=== PATIENT | male | born 1950 | race Caucasian/White ===

== ENCOUNTER → 2024-07-17 11:32 | Outpatient (REF) | payer MEDICARE, OTHER, SELFPAY | LOC: MRI 3T 11:32 | PROVIDERS: ATTENDING PHYSICIAN Nurse Practitioner; FAMILY PHYSICIAN Family Medicine | DX: R97.20 Elevated prostate specific antigen [PSA] (principal) | CPT/HCPCS: 72197; A9575 ==

== ENCOUNTER 2024-09-29 12:15 | Emergency (ER) | payer MEDICARE, OTHER, SELFPAY ==
[2024-09-29 12:19] VITALS: BP 152/89
[2024-09-29 12:46] LABS: Hematocrit 41.4 % (39.0-52.0); Hemoglobin 14.2 g/dL (13.0-18.0); Mean Corp Hgb Conc. 34.3 g/dL (33.0-37.0); Mean Corpuscular Volume 89.6 fL (80.0-94.0); Nucleated Red Blood Cells % 0 % (-); Platelet Count 200 10^3/uL (130-400); Red Cell Dist. Width 12.2 % (11.5-14.5)
[2024-09-29 13:01] LABS: ALT (SGPT) 66 U/L (0-50); AST (SGOT) 39 U/L (17-59); Albumin 4.0 g/dl (3.5-5.0); Alkaline Phosphatase 105 U/L (38-126); Blood Urea Nitrogen 18 mg/dl (9-20); Calcium 9.0 mg/dl (8.4-10.2); Carbon Dioxide 30 mmol/L (22-30); Chloride 100 mmol/L (98-107); Glucose 243 mg/dl (70-99); Potassium 4.4 mmol/L (3.5-5.1); Sodium 137 mmol/L (135-145); Total Protein 7.5 g/dl (6.3-8.2); eGFR > 60.00
--- NOTE | 2024-09-29 15:14 | ED.GENMED ---
History of Present Illness
General
Chief Complaint: Post Operative Problem(s)
Source: patient
Exam Limitations: none
Time Seen by Provider: 09/29/24 14:58
History of Present Illness
History of Present Illness:
74-year-old male presents complaining of increasing swelling and ecchymosis to the right groin. This was a site of access for his TAVR that was performed 5 days ago [facility]. He spoke with his surgical staff and they sent him in
here for evaluation. He denies significant pain. No shortness of breath. No other complaints he is on a baby aspirin.
Phy Exam
Physical Exam
Physical Exam:
General: Well-appearing male no acute respiratory distress
HEENT: Normocephalic atraumatic
Heart: Regular rate and rhythm
Lungs: Clear no wheeze
Skin: Ecchymosis noted in the right inguinal region just inferior to the prior site of access for his TAVR procedure. No obvious swelling this is slightly tender no erythema or induration
Course
Orders/Labs/Results
Orders:
Orders
09/29/24 12:31
Complete Blood Count/With Diff Urgent
Comprehensive Metabolic Panel Urgent
09/29/24 15:10
US Vascular Exam Limited Urgent
Reason For Exam: right groin swelling, recent TAVAR
Abnormal Lab Results
09/29/24
12:31
RBC 4.62 L 10^6/uL
(4.70-6.10)
Absolute Monos (auto) 0.8 H 10^3/uL
(0.1-0.6)
Lymphocytes % 19.5 L %
(20.5-51.1)
Monocytes % 10.2 H %
(1.7-9.3)
Glucose 243 H mg/dl
(70-99)
ALT 66 H U/L
(0-50)
09/29/24 12:31
09/29/24 12:31
Vital Signs
Initial and Last Documented VS:
Initial Vital Signs
Temp Pulse Resp BP Pulse Ox
98.5 F 92 18 152/89 98
09/29/24 12:19 09/29/24 12:19 09/29/24 12:19 09/29/24 12:19 09/29/24 12:19
Last Documented Vital Signs
Temp Pulse Resp BP Pulse Ox
98.5 F 92 18 152/89 98
09/29/24 12:19 09/29/24 12:19 09/29/24 12:19 09/29/24 12:19 09/29/24 15:15
MDM/Problems Addressed
Differential Diagnosis Includes:
Ecchymosis right groin status post TAVR procedure. Consider hematoma versus pseudoaneurysm. Ultrasound study ordered after speaking with vascular surgery
*Pulse Oximetry
SaO2: 98
Oxygen Mode of Delivery: Room air
Patient hypoxic: no
*Critical Care Note
Total Time (30-74mins, 75-104mins- exclusive of procedures): Not Applicable
Update Note
Update Note:
Ultrasound negative for pseudoaneurysm. Suspect hematoma. Patient reassured. Stable for discharge.
ED Attending Note
-
Portions of this chart may have been created with voice recognition software.� Occasional wrong word or��sound alike� substitutions may have occurred due to the inherent limitations of voice recognition software.
Discharge Plan
Departure
Patient Disposition: Home (Routine Discharge)
Date of Disposition: 09/29/24
Time of Disposition: 17:05
Patient with high blood pressure during this ER visit?: No
Discharge Problem:
Hematoma
Instructions: Hematoma
Referrals:
Shelia Obregon DO [Family Provider]
Activity Restrictions/Additional Instructions:
Return here for worsening symptoms otherwise follow-up with your doctor
Interventions
Interventions:
*Risk Screen - Suicide Last Done: 09/29/24 12:19
*General Assessment Last Done: 09/29/24 12:19
*Neglect/Abuse Screening Last Done: 09/29/24 12:19
*ED- Fall Risk Assessment Last Done: 09/29/24 12:19
*ED COVID-19 Vaccine History Last Done: 09/29/24 12:19
ED-Skin Assessment Last Done: 09/29/24 15:11
Discharge Date and Time
Print Language: KAZAKH
[2024-09-29 17:45] VITALS: BP 144/81
== END 2024-09-29 18:04 | disposition home or self-care (01) ==
LOC: EMR 12:15
PROVIDERS: Student in an Organized Health Care Education/Training Program; EMERGENCY PHYSICIAN Emergency Medicine; FAMILY PHYSICIAN Family Medicine
DX: L76.32 Postprocedural hematoma of skin and subcutaneous tissue following other procedure (principal); Z95.2 Presence of prosthetic heart valve
CPT/HCPCS: 99284; 80053; 85025; 93926

== ENCOUNTER 2024-09-30 20:46 | Emergency (ER) | payer MEDICARE, OTHER, SELFPAY ==
[2024-09-30 20:48] VITALS: BP 163/89
--- NOTE | 2024-09-30 23:11 | ED.GENMED ---
History of Present Illness
<Ericka Flores MD, Resident - Last Filed: 10/02/24 20:11>
General
Chief Complaint: DVT/Possible Blood Clot
Source: patient
Time Seen by Provider: 09/30/24 22:18
Nursing documentation reviewed up to this point in time: agreed with
History of Present Illness
History of Present Illness:
Mr. Ross Roy is a 74-year-old male with a PMH notable for gout, valvular disease (status post TAVR on 09/23/2024), prediabetes (controlled with lifestyle modification for 10 years), hyperlipidemia, hypertension, and possible prostate carcinoma, who
is presenting for pain in his left foot.
He has pain at his left first metatarsophalangeal joint. he also has a rash and pain at the medial aspect and dorsal surface across the metatarsophalangeal joint region of his left foot.
He saw a doctor within the last day and got a DVT study at a vein clinic in [place], which sounded negative for a DVT. The doctor wanted him to get an arterial ultrasound.
He denies a decrease in urination (endorses increased urination), flank pain, abdominal pain. He endorses a new vision change of seeing a white dot moved from his right visual field to his left visual field.
Patient takes aspirin, lisinopril, rosuvastatin. He is concerned about the interaction between rosuvastatin and colchicine, is prescribed for gout.
Review of Systems
<Ericka Flores MD, Resident - Last Filed: 10/02/24 20:11>
Review of Systems
All Other Systems: ROS reviewed and negative except as documented in HPI and ROS
Phy Exam
<Ericka Flores MD, Resident - Last Filed: 10/02/24 20:11>
Physical Exam
Physical Exam:
General: In no acute distress
Cardiovascular: Regular rate and rhythm
Lungs: Clear to auscultation bilaterally
Extremities:
Left calf greater than right, and the patient states that his left calf is usually bigger than his right. No erythema or pain to palpation. Homans' sign negative
Plantarflexion and dorsiflexion of left foot is weaker than the right foot.
Left foot is more swollen from the ankle down.
Swelling at left first metatarsal interphalangeal joint.
Lacy erythema as medial aspect of left foot and dorsal surface of metatarsal joints. Tenderness to palpation at those sites
Left dorsalis pedis pulse 1+. Right dorsalis pedis pulse 2+.
Abdomen: No tenderness to deep palpation
Normal bowel sounds
Neuro: EOMI, alert and oriented
Course
<Ericka Flores MD, Resident - Last Filed: 10/02/24 20:11>
Orders/Labs/Results
Orders:
Orders
09/30/24 23:11
Legs, Bilateral US [US Periph Venous LOWER Ext Andrew] Urgent
Comment:
Reason For Exam: rule out DVT/pain
09/30/24 23:13
CBC/With ESR Urgent
CRP [C-Reactive Protein] Urgent
Comprehensive Metabolic Panel Urgent
Uric Acid Urgent
10/01/24 00:26
Colchicine 0.6 mg PO NOW STA
Abnormal Lab Results
09/30/24
23:13
RBC 4.38 L 10^6/uL
(4.70-6.10)
Absolute Monos (auto) 0.9 H 10^3/uL
(0.1-0.6)
Monocytes % 10.8 H %
(1.7-9.3)
ESR 73 H mm/hour
(0-20)
Carbon Dioxide 31 H mmol/L
(22-30)
Glucose 141 H mg/dl
(70-99)
ALT 63 H U/L
(0-50)
C-Reactive Protein 48.10 H mg/L
(0.0-10.00)
09/30/24 23:13
09/30/24 23:13
Vital Signs
Initial and Last Documented VS:
Initial Vital Signs
Temp Pulse Resp BP Pulse Ox
98.3 F 92 18 163/89 97
09/30/24 20:48 09/30/24 20:48 09/30/24 20:48 09/30/24 20:48 09/30/24 20:48
Last Documented Vital Signs
Temp Pulse Resp BP Pulse Ox
98.3 F 92 18 163/89 97
09/30/24 20:48 09/30/24 20:48 09/30/24 20:48 09/30/24 20:48 09/30/24 23:30
<Alexandro Jovel, DO - Last Filed: 10/01/24 00:28>
Orders/Labs/Results
Orders:
Orders
09/30/24 23:11
Legs, Bilateral US [US Periph Venous LOWER Ext Andrew] Urgent
Comment:
Reason For Exam: rule out DVT/pain
09/30/24 23:13
CBC/With ESR Urgent
CRP [C-Reactive Protein] Urgent
Comprehensive Metabolic Panel Urgent
Uric Acid Urgent
10/01/24 00:26
Colchicine 0.6 mg PO NOW STA
Abnormal Lab Results
09/30/24
23:13
RBC 4.38 L 10^6/uL
(4.70-6.10)
Absolute Monos (auto) 0.9 H 10^3/uL
(0.1-0.6)
Monocytes % 10.8 H %
(1.7-9.3)
ESR 73 H mm/hour
(0-20)
Carbon Dioxide 31 H mmol/L
(22-30)
Glucose 141 H mg/dl
(70-99)
ALT 63 H U/L
(0-50)
C-Reactive Protein 48.10 H mg/L
(0.0-10.00)
09/30/24 23:13
09/30/24 23:13
Vital Signs
Initial and Last Documented VS:
Initial Vital Signs
Temp Pulse Resp BP Pulse Ox
98.3 F 92 18 163/89 97
09/30/24 20:48 09/30/24 20:48 09/30/24 20:48 09/30/24 20:48 09/30/24 20:48
Last Documented Vital Signs
Temp Pulse Resp BP Pulse Ox
98.3 F 92 18 163/89 97
09/30/24 20:48 09/30/24 20:48 09/30/24 20:48 09/30/24 20:48 09/30/24 23:30
<Ericka Flores MD, Resident - Last Filed: 10/02/24 20:11>
MDM/Problems Addressed
Differential Diagnosis Includes:
Cholesterol atheroemboli and/or gout
PAD, PVD
Less likely:
Cellulitis
DVT
Diabetic ulcer
Chronic conditions affecting care:
Mr. Roy is a 74-year-old male with a PMH notable for gout, valvular disease, and prediabetes, who is presenting with left foot pain, rash, and swelling in the setting of a TAVR 7 days ago.
CMP, uric acid, CBC, ESR, CRP to evaluate for gout
ESR and CRP elevated. Uric acid normal
Bilateral venous Doppler ultrasound to evaluate for DVT
Given clinical symptoms (swelling, erythema, and pain at left first metatarsal phalangeal joint where he has had prior gout attacks) and elevated inflammatory markers, will treat for gout with colchicine
Since the patient is concerned for colchicine and rosuvastatin interacting, we instructed the patient to not take rosuvastatin for the days he is taking colchicine and to resume the rosuvastatin after he finishes take colchicine.
Will provide order for peripheral artery lower extremity with [facility] outpatient imaging. Instructed patient to follow-up with his primary care provider for the results.
Chronic conditions affecting care: Other (Valvular disease, gout history)
<Ericka Flores MD, Resident - Last Filed: 10/02/24 20:11>
*Pulse Oximetry
SaO2: 97
Oxygen Mode of Delivery: Room air
Patient hypoxic: no
*Critical Care Note
Total Time (30-74mins, 75-104mins- exclusive of procedures): Not Applicable
ED Attending Note
<Ericka Flores MD, Resident - Last Filed: 10/02/24 20:11>
-
Portions of this chart may have been created with voice recognition software.� Occasional wrong word or��sound alike� substitutions may have occurred due to the inherent limitations of voice recognition software.
<Alexandro Jovel, - Last Filed: 10/01/24 00:28>
ED Attending Note
Patient seen and examined by attending physician: Yes
I performed a history and physical exam of patient and discussed management with resident, I reviewed resident's note and agree with documented findings and plan of care.: Yes
ED Attending Note:
Pleasant 74-year-old male presents to the emergency department right foot pain. Seen earlier in the day and had a DVT ultrasound which patient thought was negative. No official report was had. Patient does have a history of gout and patient
states that this pain feels [place]. He was seen by PCP and recommended an outpatient arterial ultrasound. No prescription was given. Was advised to start colchicine for gout. DVT study here was negative. Patient will get a prescription for
outpatient arterial ultrasound and colchicine. Will stop the rosuvastatin temporarily while taking colchicine.
Discharge Plan
Departure
Patient Disposition: Home (Routine Discharge)
Date of Disposition: 10/01/24
Time of Disposition: 00:27
Patient with high blood pressure during this ER visit?: Yes
Condition: Good
Discharge Problem:
Gout attack
Instructions: Peripheral artery disease and claudication, Gout - ED discharge instructions, BLOOD PRESSURE
Prescriptions:
New
colchicine 0.6 mg capsule
0.6 mg PO BID Qty: 14 0RF
No Action
colchicine 0.6 mg tablet
0.6 mg PO BID Qty: 14 0RF
Referrals:
Shelia Obregon DO [Family Provider]
Activity Restrictions/Additional Instructions:
Mr. Roy, you came to the ED for concern for left foot pain. Labs were consistent with a gout attack. You were prescribed colchicine 0.6 mg twice a day. You may take it until your foot pain resolves. You may stop taking rosuvastatin while taking
colchicine and you may resume the rosuvastatin after you finish taking colchicine.
We provided a paper order for lower extremity artery arterial ultrasound to be done outpatient. Please call the [facility] to schedule the imaging ([phone]).
Please return to the ED if you develop chest pain, shortness of breath or lower leg pain, pulselessness, tingling, or numbness. It was a pleasure to be a part of your care team.
Interventions
Interventions:
*Risk Screen - Suicide Last Done: 09/30/24 20:48
*General Assessment Last Done: 10/01/24 00:52
*Neglect/Abuse Screening Last Done: 09/30/24 20:48
*ED- Fall Risk Assessment Last Done: 10/01/24 00:52
*ED COVID-19 Vaccine History Last Done: 10/01/24 00:52
*Nursing Disposition Last Done: 10/01/24 00:52
ED- Cardiac Assessment Last Done: 09/30/24 22:52
ED- Pulmonary Assessment Last Done: 09/30/24 22:52
ED-Skin Assessment Last Done: 09/30/24 22:52
Discharge Date and Time
Discharge Date/Time: 10/01/24 00:53
Print Language: COLOMBIAN
[2024-09-30 23:23] LABS: Hematocrit 39.0 % (39.0-52.0); Hemoglobin 13.3 g/dL (13.0-18.0); Mean Corp Hgb Conc. 34.1 g/dL (33.0-37.0); Mean Corpuscular Volume 89.0 fL (80.0-94.0); Nucleated Red Blood Cells % 0 % (-); Platelet Count 206 10^3/uL (130-400); Red Cell Dist. Width 12.1 % (11.5-14.5)
[2024-09-30 23:45] LABS: ALT (SGPT) 63 U/L (0-50); AST (SGOT) 34 U/L (17-59); Albumin 3.9 g/dl (3.5-5.0); Alkaline Phosphatase 114 U/L (38-126); Blood Urea Nitrogen 20 mg/dl (9-20); Calcium 8.8 mg/dl (8.4-10.2); Carbon Dioxide 31 mmol/L (22-30); Chloride 101 mmol/L (98-107); Glucose 141 mg/dl (70-99); Potassium 4.6 mmol/L (3.5-5.1); Sodium 137 mmol/L (135-145); Total Protein 7.3 g/dl (6.3-8.2); Uric Acid 6.6 mg/dl (3.5-8.5); eGFR > 60.00
[2024-09-30 23:48] LABS: C-Reactive Protein 48.10 mg/L (0.0-10.00)
[2024-10-01] MEDS: COLCHICINE 0.6 MG PO (00:35)
== END 2024-10-01 00:53 | disposition home or self-care (01) ==
LOC: EMR 20:46
PROVIDERS: EMERGENCY PHYSICIAN Student in an Organized Health Care Education/Training Program; FAMILY PHYSICIAN Family Medicine
DX: M10.9 Gout, unspecified (principal); M79.672 Pain in left foot; R21 Rash and other nonspecific skin eruption; H53.8 Other visual disturbances; M79.604 Pain in right leg; M79.605 Pain in left leg; R22.42 Localized swelling, mass and lump, left lower limb; I10 Essential (primary) hypertension; R73.03 Prediabetes; E78.5 Hyperlipidemia, unspecified; I38 Endocarditis, valve unspecified; Z95.2 Presence of prosthetic heart valve; Z79.82 Long term (current) use of aspirin; Z79.899 Other long term (current) drug therapy
CPT/HCPCS: 99284; 80053; 84550; 85025; 85652; 86140; 93970

== ENCOUNTER → 2024-10-01 09:42 | Outpatient (REF) | payer MEDICARE, OTHER, SELFPAY | LOC: RAD 09:42 | PROVIDERS: FAMILY PHYSICIAN Family Medicine | DX: R60.9 Edema, unspecified (principal) | CPT/HCPCS: 93922; 93925 ==